=== PATIENT | male | born 1955 | race Caucasian/White ===

== ENCOUNTER → 2016-09-21 | Outpatient (CLI) | payer BC ==
[~2016-09-21] MED LIST: LIPITOR80 MG PO; LO-DOSE ASPIRIN81 M1 PO; LOPID600 M1 PO; LOPRESSOR25 MG PO; PLAVIX75 MG PO; PRINIVIL10 MG PO; RENAL-VITE TAB0.8 MG PO; TOPROL XL50 MG PO
== END | disposition home or self-care (01) ==
LOC: AMB 09:00
PROC: 02PYX3Z Removal of Infusion Device from Great Vessel, External Approach (ICD-10-PCS; principal; 2016-09-21)
DX: Z45.2 Encounter for adjustment and management of vascular access device (principal); N99.0 Postprocedural (acute) (chronic) kidney failure; I25.2 Old myocardial infarction

== ENCOUNTER → 2017-02-16 | Outpatient (CLI) | payer BC | END | disposition home or self-care (01) | LOC: NUC 09:50 | DX: R97.21 Rising PSA following treatment for malignant neoplasm of prostate (principal); Z90.79 Acquired absence of other genital organ(s) | CPT/HCPCS: 78306; A9503 ==